=== PATIENT | male | born 1960 | race Asian ===

== ENCOUNTER 2018-02-24 10:28 | Outpatient (CLI) | payer BC ==
--- NOTE | 2018-02-24 12:39 | Diagnostic Imaging Report ---
Indication: Cough Comparison: 05/19/2014 2 views of the chest obtained. Findings: Cardiomediastinal silhouette and pulmonary vascularity are within normal limits for age. The diaphragmatic contour is smooth and costophrenic angles are sharp. No pleural effusions are identified. The bones are unremarkable. Impression: No acute disease
== END 2018-02-24 12:28 | disposition home or self-care (01) ==
LOC: RAD 10:28
DX: R64 Cachexia (principal); R05 Cough
CPT/HCPCS: 71046